=== PATIENT | male | born 1940 | race Caucasian/White ===

== ENCOUNTER 2024-02-29 16:10 | Emergency (ER) | payer MEDICARE ==
[~2024-02-29] VITALS: Ht 170.2 cm; Wt 84.8 kg
[2024-02-29 16:10] VITALS: BP_SYST 156; PULSE 89; RESP 19; TEMP 97.8; O2SAT 98
[2024-02-29 18:50] VITALS: BP_SYST 146; PULSE 82; RESP 18; TEMP 98.2; O2SAT 96
== END 2024-02-29 18:50 | disposition home or self-care (01) ==
LOC: SED 16:10
DX: S16.1XXA Strain of muscle, fascia and tendon at neck level, initial encounter (principal); S50.811A Abrasion of right forearm, initial encounter; S09.8XXA Other specified injuries of head, initial encounter; E78.5 Hyperlipidemia, unspecified; Z98.890 Other specified postprocedural states; V89.2XXA Person injured in unspecified motor-vehicle accident, traffic, initial encounter; Y93.89 Activity, other specified; Y92.89 Other specified places as the place of occurrence of the external cause; Y99.8 Other external cause status
CPT/HCPCS: 70450-TC; 72125-TC; 73090; 99284